=== PATIENT | male | born 1955 | race Caucasian/White ===

== ENCOUNTER → 2016-06-20 | Day surgery (SDC) | payer BC ==
[~2016-06-20] MED LIST: Acetaminophen TAB* 325 MG PO PRN; Buffered Lidocaine 1% SYR 3ML* 3 ML/SYR SYRINGE INTRADERM ONE; Midazolam* 1 MG/ML 2 ML VIAL (2 MG) ONE
[2016-06-20 09:58] VITALS: BP 147/88
--- NOTE | 2016-06-20 17:34 | OP ---
DATE OF OPERATION: 06/20/16 - [facility] DATE OF : 57 SURGEON: Oumar Alvarez MD ANESTHESIOLOGIST: Benedicto Franks MD ANESTHESIA: Monitored anesthesia care. PRE-OP DIAGNOSIS: Cataract of the right eye. POST-OP DIAGNOSIS: Cataract of the right eye. OPERATIVE PROCEDURE: Cataract extraction of the right eye. IMPLANTS: SN60WF 15.0 diopter lens to the right eye. COMPLICATIONS: None. DESCRIPTION OF PROCEDURE: The patient was given phenylephrine 2.5% and cyclopentolate 1% eye drops to the operative eye in the preoperative area. The patient was brought to the operating room where a time-out was taken to identify the correct patient, site, and side of the surgery. The patient's right eye was prepped and draped in the usual sterile fashion with 5% Betadine. A second time- out was taken to verify the correct patient, site, and side of the surgery and correct lens selection. The patient had selected for monovision with the right eye set up for near vision. Preoperatively, the patient was assessed for the ideal lens selection and as he wears a contact, that makes him approximately -2.5 diopters myopic in the right eye. We elected to aim for postoperative refraction of around -2 to -2.5 in the right eye. A lid speculum was placed to the right eye. A 1-mm paracentesis blade was used to make a clear corneal incision in the superotemporal position. Preservative- free 1% lidocaine was injected into the anterior chamber. DuoVisc was then injected into the anterior chamber. A 2.75-mm keratome blade was used to make a make a triplanar incision at the inferotemporal position. A cystotome was used to initiate a capsulorrhexis, which was completed with Utrata forceps in a continuous and curvilinear manner. Hydrodissection of the lens was then performed with BSS on a cannula. The lens could be spun in the capsular bag. The phacoemulsification handpiece was then used in a [id number] technique to remove the nucleus in its entirety with 8.29 CDE. The I/A handpiece was then used to remove the residual cortical lens material. DuoVisc was then injected to inflate the capsular bag. The planned SN60WF 15.0 diopter lens was then injected into the capsular bag. The residual DuoVisc was then removed from the eye with the I/A handpiece. The corneal incisions were then hydrated and no leaks occurred at physiologic pressure around 20 mmHg per palpation. The lid speculum was then removed and drapes removed. Maxitrol ointment was then placed to the surface of the operative eye. An adhesive patch and shield was then placed over the operative eye. The patient was taken to the postoperative area in stable condition. [id number]/[facility] #: [id number] [facility] HOSPITALMakayla
== END | disposition home or self-care (01) ==
LOC: OREAST 08:27
PROVIDERS: ATTEND Student in an Organized Health Care Education/Training Program
DX: H25.11 Age-related nuclear cataract, right eye (principal); H40.053 Ocular hypertension, bilateral; I10 Essential (primary) hypertension
CPT/HCPCS: J2250; V2632

== ENCOUNTER 2016-06-23 08:08 | Emergency (ER) | payer BC ==
[2016-06-23 08:24] VITALS: BP 175/99
[2016-06-23] MEDS ORDERED: Cyclobenzaprine TAB* 10 MG PO ONE (08:26)
[2016-06-23] MEDS ORDERED: Gabapentin CAP(*) 100 MG PO ONE (08:26)
[2016-06-23] MEDS ORDERED: Ketorolac INJ* 60 MG/2 ML VIAL IM ONE (08:26)
--- NOTE | 2016-06-23 08:29 | ED ---
Upper Extremity Pain - HPI Summary HPI Summary: Patient presents with right upper extremity pain and tingling that began without incident two days ago. He awoke with intense shoulder and arm pain, and thought he "just slept wrong". He was unable to move the arm in any direction due to pain. He saw his dye expert and ROM was improved. He took ibuprofen, tylenol and aspirin without relief. Today his pain has returned and he is in severe pain. The pain is most intense in the upper right arm and armpit, but he has tingling to the digits. He denies weakness, redness or swelling. He denies prior episodes of pain or previous injury to his neck or spine. No JOHNSON, CP, SOB or abdominal pain. - History of Current Complaint Chief Complaint: EDExtremityUpper Stated Complaint: RT SIDE BODY-ARM NUMBNESS Time Seen by Provider: 06/23/16 08:15 Hx Obtained From: Patient Mechanism Of Injury: Unknown Onset/Duration: Started Days Ago - 2, Atraumatic Timing: Constant Severity Initially: Severe Severity Currently: Severe Pain Location: Shoulder - right, Arm Character: Sharp, Aching - deep Aggravating Factor(s): Movement Alleviating Factor(s): Nothing Associated Signs & Symptoms: Positive: Numbness/Tingling - tingling. Negative: Weakness, Chest Pain, SOB Related History: Dominant Hand Right - Allergies/Home Medications Allergies/Adverse Reactions: Allergies Allergy/AdvReac Type Severity Reaction Status Date / Time AMOXICILLIN AND RELATED Allergy Swelling Uncoded 06/20/16 08:43 TESTOSTERONE PATCH Allergy Rash Uncoded 06/20/16 08:43 PMH/Surg Hx/FS Hx/Imm Hx Cardiovascular History: Reports: Hx Hypertension - ON MEDICATION FOR Denies: Hx Pacemaker/ICD Respiratory History: Reports: Hx Asthma - A CHILD GI History: Reports: Hx Hiatal Hernia - HX OF NO PROBLEMS RECENTLY Sensory History: Reports: Hx Cataracts - BILATERAL, Hx Contacts or Glasses - CONTACTS Denies: Hx Hearing Aid Opthamlomology History: Reports: Hx Cataracts - BILATERAL, Hx Contacts or Glasses - CONTACTS Neurological History: Reports: Hx Migraine - ONCE PER YEAR- TREATS WITH EXCEDRIN MIGRAINE Psychiatric History: Reports: Hx Anxiety - IN THE PAST - Surgical History Surgery Procedure, Year, and Place: AGE 13- TONSILLECTOMY. 04/2016-CATARACT LEFT EYE- [facility]. VASECTOMY- AGE 41 Hx Anesthesia Reactions: No Infectious Disease History: No Infectious Disease History: Denies: Traveled Outside the [place] in Last 30 Days - Family History Known Family History: Positive: Hypertension - Social History Occupation: Employed Full-time Lives: With Family Alcohol Use: Occasionally Substance Use Type: Reports: None Smoking Status (MU): Never Smoked Tobacco Review of Systems Negative: Fever Negative: Chest Pain Negative: Shortness Of Breath, Cough Negative: Abdominal Pain, Vomiting Negative: Myalgia, Decreased ROM, Edema Negative: Bruising Positive: Paresthesia. Negative: Headache, Weakness, Numbness All Other Systems Reviewed And Are Negative: Yes Physical Exam Triage Information Reviewed: Yes Vital Signs On Initial Exam: Initial Vitals Temp Pulse Resp BP Pulse Ox 97.6 F 77 18 175/99 96 06/23/16 08:20 06/23/16 08:20 06/23/16 08:20 06/23/16 08:20 06/23/16 08:20 Vital Signs Reviewed: Yes Appearance: Positive: Well-Appearing, Pain Distress, Obese Skin: Positive: Warm, Skin Color Reflects Adequate Perfusion, Dry, Soft Head/Face: Positive: Normal Head/Face Inspection Eyes: Positive: EOMI, GALO, Conjunctiva Clear ENT: Positive: Hearing grossly normal Neck: Positive: Supple, Nontender, No Lymphadenopathy Respiratory/Lung Sounds: Positive: Breath Sounds Present Cardiovascular: Positive: RRR Musculoskeletal: Positive: Strength/ROM Intact - 5/5 strength with pain in shoulder abd/IR/ER; 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 Negative: Edema Right Neurological: Positive: Sensory/Motor Intact, Alert, Oriented to Person Place, Time, NV Bundle Intact Distally - Sensation intact right upper extremity with 1- 5 digit tingling and intact sensation, Normal Gait. Negative: Facial Droop, Focal Deficit @, Slurred Speech Psychiatric: Positive: Affect/Mood Appropriate AVPU Assessment: Alert Diagnostics - Vital Signs Vital Signs Temp Pulse Resp BP Pulse Ox 06/23/16 08:20 97.6 F 77 18 175/99 96 - Laboratory Lab Statement: Any lab studies that have been ordered have been reviewed, and results considered in the medical decision making process. - CT No standard instances CT Interpretation: No Acute Changes CT Interpretation Completed By: Radiologist - C3/C4 disc bulging without acute body abdomality Re-Evaluation - Re-Evaluation First Eval Re-Evaluation Time: 09:40 Change: Improved Comment: Pain improved with movement and he is now able to find a comfortable position. Course/Dx - Course Course Of Treatment: Patient's care and exam discussed with Dr. Cornejo. Patient will have close follow-up with his PCP for evaluation and understands to return to the ED if he develops weakness or symptoms worsen. - Diagnoses Differential Diagnosis/HQI/PQRI: Positive: Arthritis, Bursitis, Contusion, Fracture (Closed), Hematoma, Strain, Sprain Provider Diagnoses: Cervical radiculopathy - Physician Notifications Instructed by Provider To: Have Pt Call For Appt. - patient will call PCP Discharge - Discharge Plan Condition: Stable Disposition: HOME Prescriptions: Methylprednisolone [Medrol Dosepak 4 MG*] 250 mg PO .SEE SHAWN INSTRUCTION #6 tab traMADol TAB* [Ultram*] 50 mg PO Q6HR PRN #12 tab MDD 4 PRN Reason: Pain Patient Education Materials: Cervical Radiculopathy (ED) Referrals: Axel Gibbs MD [Primary Care Provider] - Additional Instructions: Please take the steroid daily as prescribed. Use the pain medication as needed when not driving or using heavy equipment. Apply heat several times daily and rest. Call your PCP today for an appointment for evaluation and possible referral for outpatient MRI and/or physical therapy. Return to the emergency department if your symptoms worsen.
--- NOTE | 2016-06-23 09:33 | RAD ---
INDICATION: Right arm and neck pain with stabbing pain down the upper thoracic spine COMPARISON: Cervical spine dated 10/26/2009 TECHNIQUE: Axial source images were acquired with coronal and sagittal reformatting. FINDINGS: There is mild straightening of the normal cervical lordosis. The vertebral bodies and facet joints are appropriately aligned. Degenerative changes include loss of intervertebral tightness quite and mild marginal osteophyte formation most severely observed at C3-C7. Degenerative changes on the coronal view images include uncovertebral hypertrophy at the same cervical levels. The odontoid and the atlantodental interval are normal. The prevertebral soft tissues appear normal. On the axial view images there is evidence of disc protrusion at C3/C4 causing mild central canal and bilateral neural foraminal stenosis. There is disc protrusion at C4/C5 causing mild central canal and neural foraminal stenosis. There is disc protrusion at C5/C6 causing similar central canal stenosis. The visualized soft tissue elements of the neck are normal. The visualized lung apices are clear. IMPRESSION: MULTILEVEL DEGENERATIVE CHANGES OF THE CERVICAL SPINE DESCRIBED ABOVE. CLINICALLY WARRANTED SUPERIOR CHARACTERIZATION OF THE INTERVERTEBRAL DISKS AND OTHER SOFT TISSUES CAN BE MADE WITH MRI OF THE SPINE.
== END 2016-06-23 10:35 | disposition home or self-care (01) ==
LOC: ED 08:08
DX: M54.12 Radiculopathy, cervical region (principal); I10 Essential (primary) hypertension; J45.909 Unspecified asthma, uncomplicated; Z88.0 Allergy status to penicillin
CPT/HCPCS: 72125; 96372; 99282; A9270-GY; J1885